=== PATIENT | male | born 1970 | race Caucasian/White ===

== ENCOUNTER 2016-06-18 | Outpatient (CLI) | END 2016-06-18 11:22 | disposition EMS.NT ==

== ENCOUNTER 2016-09-16 08:00 | Outpatient (CLI) | payer MEDICARE, MEDICAID | END 2016-09-16 23:59 | DX: Z01.818 Encounter for other preprocedural examination (principal); G40.909 Epilepsy, unspecified, not intractable, without status epilepticus; R73.9 Hyperglycemia, unspecified ==

== ENCOUNTER 2016-09-16 13:30 | Outpatient (CLI) | payer MEDICARE, MEDICAID | END 2016-09-16 14:00 | disposition home or self-care (01) | DX: Z01.818 Encounter for other preprocedural examination (principal); G40.909 Epilepsy, unspecified, not intractable, without status epilepticus; R73.9 Hyperglycemia, unspecified ==

== ENCOUNTER 2016-09-16 15:23 | Outpatient (CLI) | payer MEDICARE, MEDICAID | END 2016-09-16 15:24 | disposition home or self-care (01) | DX: Z53.9 Procedure and treatment not carried out, unspecified reason (principal) ==

== ENCOUNTER 2016-11-11 08:50 | Outpatient (CLI) | payer MEDICARE, MEDICAID | END 2016-11-11 08:51 | disposition home or self-care (01) | DX: D53.9 Nutritional anemia, unspecified (principal); R73.9 Hyperglycemia, unspecified; E78.5 Hyperlipidemia, unspecified; E03.9 Hypothyroidism, unspecified; G40.909 Epilepsy, unspecified, not intractable, without status epilepticus ==

== ENCOUNTER 2017-12-20 08:00 | Outpatient (CLI) | payer MEDICARE, MEDICAID ==
[2017-12-20 12:44] LABS: BASOPHILS % (AUTO) 0.6 %; EOSINOPHILS # (AUTO) 0.1 10^3/uL (0.0-0.7); EOSINOPHILS % (AUTO) 1.6 %; LYMPHOCYTES # (AUTO) 0.9 10^3/uL (1.5-3.5); LYMPHOCYTES % (AUTO) 20.4 %; MEAN CORPUSCULAR HEMOGLOBIN 30.9 pg (27.0-31.0); MEAN CORPUSCULAR HGB CONC 33.4 g/dL (32.0-36.0); MEAN CORPUSCULAR VOLUME 92.4 fL (80.0-94.0); MEAN PLATELET VOLUME 9.3 fL (7.4-11.4); MONOCYTES # (AUTO) 0.3 10^3/uL (0.0-1.0); MONOCYTES % (AUTO) 7.5 %; NEUTROPHILS % (AUTO) 69.9 %; PLT - PLATELET COUNT 172 10^3/uL (130-450); RED BLOOD COUNT 4.54 10^6/uL (4.70-6.10); RED CELL DISTRIBUTION WIDTH 14.7 % (12.0-15.0); WHITE BLOOD COUNT 4.4 x10^3/uL (4.8-10.8)
[2017-12-20 13:18] LABS: ALBUMIN 4.4 g/dL (3.2-5.5); ALBUMIN/GLOBULIN RATIO 1.4 (1.0-2.2); ALKALINE PHOSPHATASE 36 IU/L (42-121); ALT ALANINE AMINOTRANSFERASE 22 IU/L (10-60); AST ASPARTATE AMINOTRANSFERASE 28 IU/L (10-42); BILIRUBIN,TOTAL 1.1 mg/dL (0.2-1.0); BUN - BLOOD UREA NITROGEN 12 mg/dL (6-20); CALCIUM 9.4 mg/dL (8.5-10.3); CARBON DIOXIDE - CO2 27 mmol/L (21-32); CHLORIDE 100 mmol/L (101-111); CHOLESTEROL 226 mg/dL; CREATININE 0.9 mg/dL (0.6-1.2); GFR - MDRD 91 (>89); GLUCOSE 96 mg/dL (70-100); HDL CHOLESTEROL 76 mg/dL; LDL CHOLESTEROL,CALCULATED 141 mg/dL; LDL/HDL RATIO 1.9 (<3.6); SODIUM 135 mmol/L (135-145); TOTAL PROTEIN 7.6 g/dL (6.7-8.2); VLDL CHOLESTEROL 9 mg/dL
== END 2017-12-20 08:01 | disposition home or self-care (01) ==
LOC: LAB.N 08:00
PROVIDERS: ATTEND Family Medicine
DX: E78.5 Hyperlipidemia, unspecified (principal); D53.9 Nutritional anemia, unspecified; R73.9 Hyperglycemia, unspecified; G40.909 Epilepsy, unspecified, not intractable, without status epilepticus
CPT/HCPCS: 36415; 80053; 80061; 83721; 84443; 85025

== ENCOUNTER 2018-01-23 21:32 | Emergency (ER) | payer MEDICARE, MEDICAID ==
[2018-01-23] MEDS ORDERED: cephALEXin 250 MG CAPSULE PO STA (22:14)
--- NOTE | 2018-01-23 22:16 | ED Physician Documentation ---
PD HPI LOWER EXT INJURY - Stated complaint Stated Complaint: RT KNEE SWELLING/PX - Chief complaint Chief Complaint: Ext Problem - History obtained from History obtained from: Patient, Family - History of Present Illness PD HPI LOW EXT INJURY LOCATION: Right (He was on his knees all day working on a project and when he got up he noticed his right knee was swollen and he had some difficulty bending it. He did whack it once or twice but there was no specific major injury.) Review of Systems Constitutional: denies: Fever, Chills GI: denies: Abdominal Pain, Nausea Skin: denies: Rash, Lesions PD PAST MEDICAL HISTORY - Past Medical History Past Medical History: Yes Neuro: Seizure disorder Other Past Medical History: Epilepsy - Past Surgical History Past Surgical History: Yes - Present Medications Home Medications: Ambulatory Orders Medication Instructions Recorded Confirmed Phenytoin Sodium Extended 350 mg PO DAILY 10/07/14 03/09/15 [Dilantin] HYDROcod/ACETAM 5/325 [[place] 5/325] 1 ea PO Q6H PRN #15 tablet 03/09/15 Ibuprofen [Motrin] 400 mg PO Q6H PRN #30 tablet 03/09/15 Ondansetron Odt [Zofran] 4 mg TL Q6H PRN #10 tablet 03/09/15 Cephalexin [Keflex] 500 mg PO QID #40 capsule 01/23/18 - Allergies Allergies/Adverse Reactions: Allergies Allergy/AdvReac Type Severity Reaction Status Date / Time carbamazepine [From Tegretol] Allergy Intermediate weakness Verified 03/09/15 01 :59 and chills gabapentin Allergy Unknown lowered Verified 03/09/15 01:59 WBC count - Social History Does the pt smoke?: No Smoking Status: Never smoker Does the pt drink ETOH?: No Does the pt have substance abuse?: No - Immunizations Immunizations are current?: Yes - POLST Patient has POLST: No PD ED PE NORMAL - Vitals Vital signs reviewed: Yes - General General: Alert and oriented X 3, No acute distress - HEENT HEENT: Other (Right craniotomy scar) - Extremities Extremities: Other (He has acute case of right prepatellar bursitis which is not warm or red. Actually has good range of motion despite it.) - Neuro Neuro: Alert and oriented X 3, Normal speech Results - Vitals Vitals: Vital Signs - 24 hr 01/23/18 21:36 Temperature 36 C L Heart Rate 71 Respiratory 18 Rate Blood Pressure 113/79 O2 Saturation 100 Oxygen O2 Source Room air Procedures - General procedure General procedure: After verbal informed consent the right prepatellar area was prepped with Hibiclens and locally infiltrated with lidocaine with epinephrine. About a 1-1/ 2 cm incision was made over the prepatellar bursa and a massive amount of blood and clot was expressed. Culture was done although clinically it is not infected. I got as much of the clot out as I could and half inch packing was inserted and he was instructed to follow-up in 2 days for recheck. PD MEDICAL DECISION MAKING - Sepsis Event Vital Signs: Vital Signs - 24 hr 01/23/18 21:36 Temperature 36 C L Heart Rate 71 Respiratory 18 Rate Blood Pressure 113/79 O2 Saturation 100 Oxygen O2 Source Room air Departure - Departure Disposition: 01 Home, Self Care Clinical Impression: Bursitis, prepatellar, right Condition: Good Record reviewed to determine appropriate education?: Yes Instructions: ED Bursitis Follow-Up: [facility] [Provider Group] (Thruday, call tomorrow, see me if unable (after 12p)) Prescriptions: Cephalexin [Keflex] 500 mg PO QID #40 capsule
[2018-01-23 22:23] VITALS: BP 128/76
== END 2018-01-23 22:23 | disposition home or self-care (01) ==
LOC: ED 21:32
DX: M70.41 Prepatellar bursitis, right knee (principal)
CPT/HCPCS: 87070; 87205; 99283; A9270

== ENCOUNTER 2018-05-18 13:33 | Outpatient (CLI) | payer MEDICARE, MEDICAID ==
[2018-05-18 19:17] LABS: BASOPHILS % (AUTO) 0.5 %; EOSINOPHILS % (AUTO) 7.2 %; LYMPHOCYTES % (AUTO) 23.6 %; MEAN CORPUSCULAR HEMOGLOBIN 30.4 pg (27.0-31.0); MEAN CORPUSCULAR HGB CONC 32.4 g/dL (32.0-36.0); MEAN CORPUSCULAR VOLUME 93.8 fL (80.0-94.0); MEAN PLATELET VOLUME 8.8 fL (7.4-11.4); MONOCYTES % (AUTO) 7.1 %; NEUTROPHILS % (AUTO) 61.6 %; PLT - PLATELET COUNT 175 10^3/uL (130-450); RED BLOOD COUNT 4.61 10^6/uL (4.70-6.10); RED CELL DISTRIBUTION WIDTH 15.8 % (12.0-15.0); WHITE BLOOD COUNT 2.4 x10^3/uL (4.8-10.8)
[2018-05-18 19:24] LABS: ABNORMAL LYMPHS % (MANUAL) 0 %; BAND NEUTROPHILS % (MANUAL) 0 %
[2018-05-18 19:45] LABS: BASOPHILS % (MANUAL) 2 %; DIFFERENTIAL COMMENT MANUAL DIFFERENTIAL; EOSINOPHILS # (MANUAL) 0.2 10^3/uL (0-0.7); LYMPHOCYTES # (MANUAL) 0.4 10^3/uL (1.5-3.5); LYMPHOCYTES % (MANUAL) 16 %; NEUTROPHILS # (MANUAL) 1.8 10^3/uL (1.5-6.6); NEUTROPHILS % (MANUAL) 74 %; PLATELET ESTIMATE, MANUAL NORMAL (130-450,000) (NORMAL); PLATELET MORPHOLOGY NORMAL APPEARANCE (NORMAL); RBC MORPHOLOGY (MULTIPLE) 1+ ANISOCYTOSIS (NORMAL)
[2018-05-18 19:47] LABS: ALBUMIN 4.9 g/dL (3.2-5.5); ALBUMIN/GLOBULIN RATIO 1.7 (1.0-2.2); BILIRUBIN,TOTAL 1.2 mg/dL (0.2-1.0); CALCIUM 9.5 mg/dL (8.5-10.3); CREATININE 0.8 mg/dL (0.6-1.2); TOTAL PROTEIN 7.8 g/dL (6.7-8.2)
== END 2018-05-18 23:59 | disposition home or self-care (01) ==
LOC: LAB.N 13:33
PROVIDERS: ATTEND Family Medicine
DX: D53.9 Nutritional anemia, unspecified (principal); R73.9 Hyperglycemia, unspecified; E03.9 Hypothyroidism, unspecified; G40.909 Epilepsy, unspecified, not intractable, without status epilepticus
CPT/HCPCS: 36415; 80053; 82306; 84443; 85025

== ENCOUNTER 2018-10-17 00:02 | Emergency (ER) | payer MEDICARE, MEDICAID ==
--- NOTE | 2018-10-17 00:16 | ED Physician Documentation ---
PD HPI UPPER EXT INJURY - Stated complaint Stated Complaint: FALL/FINGER PX - Chief complaint Chief Complaint: Ext Problem - History obtained from History obtained from: Patient - History of Present Illness Location: Right, Finger Type of injury: Fall Where injury occurred: Home Timing - onset: How many hours ago (2) Timing - duration: Hours Timing - details: Abrupt onset Pain level now: 6 Improved by: Rest Worsened by: Moving, Palpating Associated symptoms: Swelling, Discolored Similar symptoms before: Has not had sx before Recently seen: Not recently seen - Additonal information Additional information: patient had seizure, causing him to fall from standing position. he says the seizure is not unusual for him and thus does not want to be evaluated for this. He presents to ED for right third finger pain due to injury sustained when he fell, although he was not conscious so does not know precise mechanism. he is right hand dominant. Review of Systems Musculoskeletal: reports: Extremity pain, Extremity swelling. denies: Neck pain, Back pain Neurologic: reports: Seizure, Head injury. denies: Headache PD PAST MEDICAL HISTORY - Past Medical History Neuro: Seizure disorder - Past Surgical History Past Surgical History: Yes - Present Medications Home Medications: Ambulatory Orders Medication Instructions Recorded Confirmed Ibuprofen [Motrin] 400 mg PO Q6H PRN #30 tablet 03/09/15 10/17/18 Sertraline [Zoloft] 25 mg PO DAILY 10/17/18 10/17/18 Zonisamide 300 mg PO 10/17/18 oxyCODONE [Roxicodone] 5 - 10 mg PO Q6H PRN #15 tablet 10/17/18 - Allergies Allergies/Adverse Reactions: Allergies Allergy/AdvReac Type Severity Reaction Status Date / Time gabapentin Allergy Unknown lowered Verified 10/17/18 00:10 WBC count perampanel [From Fycompa] Allergy Rash Verified 10/17/18 00:11 carbamazepine [From Tegretol] AdvReac Intermediate weakness Verified 10/17/18 00:10 and chills - Social History Does the pt smoke?: No Smoking Status: Never smoker Does the pt drink ETOH?: No Does the pt have substance abuse?: No - Immunizations Immunizations are current?: Yes - POLST Patient has POLST: No PD ED PE NORMAL - Vitals Vital signs reviewed: Yes - General General: Alert and oriented X 3, No acute distress, Well developed/nourished - HEENT HEENT: PERRL, EOMI - Neck Neck: No bony TTP - Neuro Neuro: No motor deficit, No sensory deficit PD ED PE EXPANDED - HEENT HEENT Visual: 1 - bruising, abrasion 2 - abrasion - Extremities APRIL UE/Hands Visual: 1 - bruising, swelling, tenderness Results - Vitals Vitals: Oxygen O2 Source Room air - Rads (name of study) right third finger xrays Radiology: Prelim report reviewed, See rad report PD MEDICAL DECISION MAKING - ED course Complexity details: reviewed results, re-evaluated patient, considered differential, d/w patient Departure - Departure Disposition: 01 Home, Self Care Clinical Impression: Finger fracture, right Qualifiers: Encounter type: initial encounter Finger: middle finger Fracture type: closed Phalanx: distal Fracture alignment: nondisplaced Qualified Code(s): S62.662A - Nondisplaced fracture of distal phalanx of right middle finger, initial encounter for closed fracture Condition: Good Instructions: ED Fx Finger Closed Follow-Up: Monae Issa MD [Provider Admit Priv/Credential] - Within 1 week Prescriptions: oxyCODONE [Roxicodone] 5 - 10 mg PO Q6H PRN #15 tablet PRN Reason: Pain Discharge Date/Time: 10/17/18 01:19
--- NOTE | 2018-10-17 00:52 | XRAY Report ---
Reason: PAIN SP FALL Procedure Date: 10/17/2018 Accession Number: [id number] / [id number] Procedure: XR - Finger(s) RT CPT Code: FULL RESULT: EXAM: RIGHT THIRD DIGIT RADIOGRAPHY EXAM DATE: 10/17/2018 12:42 AM. CLINICAL HISTORY: PAIN SP FALL. COMPARISON: None. TECHNIQUE: 3 views. FINDINGS: Bones: Minimally displaced distal tuft fracture of the right third finger. Joints: Normal. No subluxations. Soft Tissues: Distal soft tissue swelling. No radiopaque foreign body. IMPRESSION: Minimally displaced distal tuft fracture of the right third finger. [facility]
[2018-10-17] MEDS ORDERED: oxyCODONE 5 MG TABLET PO STA (01:07)
[2018-10-17 01:15] VITALS: BP 97/75
== END 2018-10-17 01:19 | disposition home or self-care (01) ==
LOC: ED 00:02
DX: S62.662A Nondisplaced fracture of distal phalanx of right middle finger, initial encounter for closed fracture (principal); S00.81XA Abrasion of other part of head, initial encounter; S00.83XA Contusion of other part of head, initial encounter; S00.31XA Abrasion of nose, initial encounter; W18.30XA Fall on same level, unspecified, initial encounter; Y92.008 Other place in unspecified non-institutional (private) residence as the place of occurrence of the external cause; G40.909 Epilepsy, unspecified, not intractable, without status epilepticus
CPT/HCPCS: 73140; 99283; A9270

== ENCOUNTER 2019-03-26 14:33 | Outpatient (CLI) | payer MEDICARE, MEDICAID | END 2019-03-26 23:59 | disposition home or self-care (01) | LOC: LAB.N 14:33 | PROVIDERS: ATTEND Psychiatry & Neurology Neurology | DX: G40.909 Epilepsy, unspecified, not intractable, without status epilepticus (principal); Z79.899 Other long term (current) drug therapy | CPT/HCPCS: 36415; 80346; 81599 ==

== ENCOUNTER 2020-07-01 12:17 | Outpatient (CLI) | payer MEDICARE, MEDICAID ==
[2020-07-01 18:43] LABS: BASOPHILS % (AUTO) 1.1 %; EOSINOPHILS # (AUTO) 0.3 10^3/uL (0.0-0.7); EOSINOPHILS % (AUTO) 7.7 %; HGB - HEMOGLOBIN 13.5 g/dL (14.0-18.0); LYMPHOCYTES % (AUTO) 26.6 %; MEAN CORPUSCULAR HEMOGLOBIN 31.1 pg (27.0-31.0); MEAN CORPUSCULAR HGB CONC 32.3 g/dL (32.0-36.0); MEAN CORPUSCULAR VOLUME 96.3 fL (80.0-94.0); MEAN PLATELET VOLUME 10.1 fL (7.4-11.4); MONOCYTES # (AUTO) 0.3 10^3/uL (0.0-1.0); MONOCYTES % (AUTO) 7.4 %; NEUTROPHILS # (AUTO) 2.1 10^3/uL (1.5-6.6); NEUTROPHILS % (AUTO) 56.9 %; PLT - PLATELET COUNT 207 10^3/uL (130-450); RED BLOOD COUNT 4.34 10^6/uL (4.70-6.10); RED CELL DISTRIBUTION WIDTH 13.7 % (12.0-15.0); WHITE BLOOD COUNT 3.6 x10^3/uL (4.8-10.8)
[2020-07-01 19:49] LABS: THYROID STIMULATING HORMONE 1.35 uIU/mL (0.34-5.60)
[2020-07-01 19:51] LABS: FREE T3 2.32 pg/mL (2.5-3.9); FREE T4 (FREE THYROXINE) 0.54 ng/dL (0.58-1.64)
== END 2020-07-01 23:59 | disposition home or self-care (01) ==
LOC: LAB.WCP 12:17
PROVIDERS: ATTEND Nurse Practitioner Family
DX: R53.83 Other fatigue (principal); E03.9 Hypothyroidism, unspecified
CPT/HCPCS: 36415; 82306; 84439; 84443; 84481; 85025

== ENCOUNTER 2020-07-14 07:00 | Outpatient (CLI) | payer MEDICARE, MEDICAID | END 2020-07-14 23:59 | disposition home or self-care (01) | LOC: LAB 07:00 | PROVIDERS: ATTEND Psychiatry & Neurology Neurology | DX: G40.219 Localization-related (focal) (partial) symptomatic epilepsy and epileptic syndromes with complex partial seizures, intractable, without status epilepticus (principal) | CPT/HCPCS: 36415; 80299; 81599 ==

== ENCOUNTER 2020-11-30 08:00 | Outpatient (CLI) | payer MEDICARE, MEDICAID ==
[2020-11-30 18:38] LABS: THYROID STIMULATING HORMONE 0.8 uIU/mL (0.34-5.60)
[2020-11-30 18:40] LABS: FREE T4 (FREE THYROXINE) 0.57 ng/dL (0.58-1.64)
[2020-11-30 18:42] LABS: FREE T3 3.27 pg/mL (2.5-3.9)
[2020-11-30 18:50] LABS: FOLATE 6.54 ng/mL (5.90 - >24.8)
== END 2020-11-30 23:59 | disposition home or self-care (01) ==
LOC: LAB.WCP 08:00
PROVIDERS: ATTEND Nurse Practitioner Family
DX: D64.9 Anemia, unspecified (principal); E03.9 Hypothyroidism, unspecified
CPT/HCPCS: 36415; 82607; 82746; 84439; 84443; 84481